=== PATIENT | male | born 2000 | race American Indian/Alaskan Native ===

== ENCOUNTER → 2024-09-09 | Outpatient (CLI) | payer OTHER, SELFPAY ==
--- NOTE | 2024-09-09 16:12 | XR_ITS ---
Examination: PA lateral chest 2 views TECHNIQUE: Upright PA lateral chest 2 views Exam date and time: September 09, 2024 1644 hours Comparison January 04, 2023 INDICATIONS: Chest pain beginning 2 days ago. FINDINGS: Normal heart size No pneumonia or pulmonary edema The osseous structures are intact IMPRESSION: No active disease
== END | disposition home or self-care (01) ==
PROVIDERS: PCP Nurse Practitioner Family; Referring Provider Nurse Practitioner Family; Visit Provider Nurse Practitioner Family
DX: R07.81 Pleurodynia (principal); Z87.09 Personal history of other diseases of the respiratory system; R53.83 Other fatigue
CPT/HCPCS: 71046

== ENCOUNTER → 2025-05-27 | Outpatient (CLI) | payer OTHER, SELFPAY ==
--- NOTE | 2025-05-27 13:39 | XR_ITS ---
Examination: Thoracic spine 3 views Technique one AP lateral coned lateral upper dorsal spine 3 views Date and time: May 27, 2025 1553 hours Comparison January 04, 2023 INDICATIONS: Upper back pain 2 weeks. FINDINGS: Thoracic dextroscoliosis 12 degrees No thoracic acute fracture Mild thoracic spondylosis No significant thoracic disc narrowing IMPRESSION: No thoracic fracture Thoracic dextroscoliosis 12 degrees
--- NOTE | 2025-05-27 13:39 | XR_ITS ---
Examination: Lumbar spine, 5 views Technique: Lumbar spine AP, lateral, coned lateral lower lumbar spine, bilateral obliques 5 views Exam date and time: May 27, 2025 1343 hours INDICATIONS: Low back pain beginning 5 weeks ago. FINDINGS: Satisfactory alignment lumbar vertebral bodies No lumbar fracture Mild disc narrowing posteriorly L4-L5, L5-S1 No spondylolisthesis IMPRESSION: Mild disc narrowing posteriorly L4-L5, L5-S1
== END | disposition home or self-care (01) ==
PROVIDERS: PCP Nurse Practitioner Family; Referring Provider Nurse Practitioner Family; Visit Provider Nurse Practitioner Family
DX: M48.07 Spinal stenosis, lumbosacral region (principal); M48.061 Spinal stenosis, lumbar region without neurogenic claudication; M41.84 Other forms of scoliosis, thoracic region
CPT/HCPCS: 72072; 72110